=== PATIENT | male | born 1980 | race Caucasian/White ===

== ENCOUNTER 2025-02-27 11:51 | Day surgery (SDC) | payer OTHER ==
[2025-02-15 08:18] VITALS: BMI 24.3
== END 2025-02-27 12:31 | disposition home or self-care (01) ==
LOC: CSHSDC 11:51
PROVIDERS: ATTEND Surgery
PROC: 3E0H8GC Introduction of Other Therapeutic Substance into Lower GI, Via Natural or Artificial Opening Endoscopic (ICD-10-PCS; principal; 2025-02-27)
PROC: 0DBL8ZX Excision of Transverse Colon, Via Natural or Artificial Opening Endoscopic, Diagnostic (ICD-10-PCS; principal; 2025-02-27)
DX: D12.3 Benign neoplasm of transverse colon (principal); K64.4 Residual hemorrhoidal skin tags; K64.8 Other hemorrhoids; K21.9 Gastro-esophageal reflux disease without esophagitis; K76.0 Fatty (change of) liver, not elsewhere classified; F17.200 Nicotine dependence, unspecified, uncomplicated
CPT/HCPCS: 88305; A4215